=== PATIENT | female | born 1995 | race Two or more races ===

== ENCOUNTER 2025-03-15 07:32 | Emergency (ER) | payer MEDICAID, OTHER ==
[~2025-03-15] VITALS: Ht 160 cm; Wt 73.1 kg
[2025-03-15 07:34] VITALS: BP 121/80; PULSE 60; RESP 16; TEMP 97.9; O2SAT 99
[2025-03-15] MEDS ORDERED: KETO0.5S31 RIGHTEYE (08:43)
[2025-03-15] MEDS ORDERED: ERY05OO OP (08:43)
--- NOTE | 2025-03-15 08:49 | ED.PDOC ---
Eye-HPI HPI Comments 29-year-old female presents to the ER with a the chief complaint of eye pain. Patient reports my son dug his fingers into my right eye last night insert having right eye pain. The patient states that she tried sleeping the pain off but was unable to, due from having pain when opening the eye. Denies any other symptoms at this time. #right eye right pain Started-last night Tried-sleeping it off ankle Denies vision changes Denies eye discharge Denies hearing changes, nausea, vomiting Denies eye pain with movement, eye pain in general, difficulty keeping eye open, feeling of something stuck in the eye, sensitivity to light Viral conditions may be associated with Watery or serous discharge Started in 1 eye then second eye 1 to 2 days later Bacterial conditions look for Purulent discharge Crusting of eyelids in the morning No history of recent or seasonal conjunctivitis Acute otitis media Chief Complaint: Eye Problem Time Seen by MD: 08:45 Reviewed Notes: Nurses Notes, Medications, Allergies Allergies: Coded Allergies: NO KNOWN ALLERGIES (Unverified , 03/15/25) Home Meds Active Scripts Erythromycin (Erythromycin) 5 Mg/Gm Oin, 1 APPLIC OP BID for 5 Days, #3.5 OIN 0 Refills Prov:KAYLEY ROBLES [employer]PER[employer] DEVELOPER 03/15/25 Ketorolac Tromethamine (Ophth) (Ketorolac Tromethamine) 0.5 % Yesenia, 1 DROP RIGHTEYE QID for 2 Days, #5 ML 0 Refills Prov:KAYLEY ROBLES HYPERION DEVELOPER 03/15/25 Information Source: Patient Mode of Arrival: Ambulatory Eye Location: Right Lids: Normal Conjunctiva: Normal Cornea: Right eye Pupils: Normal EOM: Normal Fundus: Normal Slit lamp exam: Normal Anterior chamber: Normal Mouth: Normal ENT Ear Exam: Normal, Normal, Normal Nose: Normal Sinuses: Normal Oropharynx: Normal Onset: Spontaneous Throat Exposed to: None History of: None Associated signs and symptoms: None Past Medical History PAST MEDICAL HISTORY: Denies Surgical History: Denies all surgeries REFERENCE SERVICES HEAD History: No Pertinent REFERENCE SERVICES HEAD History Family History Family History: Reviewed,noncontributory to illness, Unknown Social History Smoker: Non-Smoker Alcohol: Denies ETOH Use Drugs: Denies Drug Use Lives In: Home Constitutional: denies: chills, diaphoresis, fatigue, fever, malaise, sweats, weakness, others EENTM: reports: eye pain, eye redness; denies: blurred vision, double vision, ear bleeding, ear discharge, ear drainage, ear pain, ear ringing, hearing loss, mouth pain, mouth swelling, nasal discharge, nose bleeding, nose congestion, nose pain, photophobia, tearing, throat pain, throat swelling, voice changes, others Respiratory: denies: cough, hemoptysis, orthopnea, SOB at rest, shortness of breath, SOB with excertion, stridor, wheezing, others Cardiovascular: denies: chest pain, dizzy spells, diaphoresis, Dyspnea on exertion, edema, irregular heart beat, left arm pain, lightheadedness, palpitations, PND, syncope, others Gastrointestinal: denies: abdomen distended, abdominal pain, blood streaked bowels, constipated, diarrhea, dysphagia, difficulty swallowing, hematemesis, melena, nausea, poor appetite, poor fluid intake, rectal bleeding, rectal pain, vomiting, others Genitourinary: denies: abnormal vagina bleeding, burning, dyspareunia, dysuria, flank pain, frequency, hematuria, incontinence, pain, , vagina discharge, urgency, others Neurological: denies: dizziness, fainting, headache, left sided numbness, left sided weakness, numbness, paresthesia, pre-existing deficit, right sided numbness, right sided weakness, seizure, speech problems, tingling, tremors, weakness, others Musculoskeletal: denies: back pain, gout, joint pain, joint swelling, muscle pain, muscle stiffness, neck pain, others Integumetry: denies: bruises, change in color, change in hair/nails, dryness, laceration, lesions, lumps, rash, wounds, others Allergic/Immunocompromised: denies: Difficulty Healing, Frequent Infections, Hives, Itching, others Hematologic/Lymphatic: denies: anemia, blood clots, easy bleeding, easy bruising, swollen glands, others Endocrine: denies: excessive hunger, excessive sweating, excessive thirst, excessive urination, flushing, intolerance to cold, intolerance to heat, unexp lained weight gain, unexplained weight loss, others Psychiatric: denies: anxiety, bipolar disorder, depression, hopeless, panic disorder, schizophrenia, sleepless, suicidal, others All Other Systems: Reviewed and Negative Physical Exam Exam Comments Mild conjunctival injection, no hyphema, visual razo intact, EOM and PERRLA General Appearance: No Apparent Distress, Normal HEENT: Normal ENT Inspection, Pharynx Normal, TMs Normal Neck: Full Range of Motion, Non-Tender, Normal, Normal Inspection Respiratory: Chest Non-Tender, Lungs Clear, No Accessory Muscle Use, No Respiratory Distress, Normal Breath Sounds Cardiovascular: No Edema, No JVD, No Murmur, No Gallop, Normal Peripheral Pulses, Regular Rate/Rhythm Breast Exam: Deferred Gastrointestinal: No Organomegaly, Non Tender, No Pulsatile Mass, Normal Bowel Sounds, Soft Genitalia: Deferred Pelvic: Deferred Rectal: Deferred Extremities: No calf tenderness, Normal capillary refill, Normal inspection, Normal range of motion, Non-tender, No pedal edema Musculoskeletal : Apperance: Normal Neurologic: Alert, karate teacher II-XII nml as Tested, No Motor Deficits, Normal Affect, Normal Mood, No Sensory Deficits Cerebellar Function: Normal Reflexes: Normal Skin: Dry, Normal Color, Warm Lymphatic: No Adenopathy Was a procedure done? Was a procedure done?: No EENT DIFF Eye: Other X-Ray, Labs, Meds, VS Vital Signs Date Time Temp Pulse Resp B/P (MAP) Pulse Ox O2 Delivery O2 Flow Rate FiO2 03/15/25 07:34 97.9 60 16 121/80 99 97.9 X-Ray, Labs, Meds, VS Comment 29-year-old female presents to the ER with a the chief complaint of eye pain. Patient arrives alert and oriented, ABC's intact, afebrile, vital signs stable, saturating well in room air History and findings consistent with corneal abrasion Applied 1 drop of tetracaine and patient reported instant relief with topical anesthesia Applied fluorescein strip Using Hansen lamp corneal defect detected indicating corneal abrasion Patient discharged and advised to follow-up in 48 hours with PCP or optometry Discussed with patient's approximate healing time for corneal abrasions is somewhere between 48 to 72 hours Vicki sign negative On reevaluation, patient had symptomatic improvement. Patient is stable for discharge at this time. External notes reviewed. Test results and diagnostic imaging interpreted. All diagnostic findings, discharge care, education and instructions provided Follow-up with PCP in 2 to 3 days Patient verbalized understanding and agreed to treatment plan Vital signs stable, afebrile, no acute distress noted Patient ambulatory with strong steady gait Advised to return precautions for any new or worsening symptoms, return to ER immediately for re-evaluation Patient is aware that the purpose of this visit was for an acute medical emergency requiring emergent stabilization. Chronic conditions, including malignancies have not been ruled out. Patient is instructed to follow up with PCP as directed and discharge instructions for continued care and workup. If unable to arrange follow-up, patient is to return to the emergency department for reassessment. Patient (parent or legal guardian if applicable) was given verbal and written discharge instructions and acknowledges understanding. Additional MDM Review of External, Non-ED records: External records reviewed. Discussion with independent historian (EMS, family) history obtained from the patient/parents (if applicable) at bedside Chronic conditions affecting care: None Social determinants of health affecting care: None Consideration of admission (observation or admission): I considered escalation of care to admission for this patient, however given the reassuring workup, the patient is safe for outpatient management. Discussion with the Radiology: No Tests considered but not performed: Prescription medication considered but not given: 12 lead EKG interpretation: Time of 1ST Reevaluation: 09:15 Reevaluation 1ST: Unchanged Patient Education/Counseling: Diagnosis, Treatment, Prognosis Family Education/Counseling: No Family Present SEPSIS Sepsis Screen Date sepsis recognized/suspect: Mar 15, 2025 Time Sepsis recognized/suspect: 07 Recent Procedure: No On Antibiotic Therapy: No Respiratory Rate >20: No Heart Rate >90: No Temp<36 C (96.8 F) or >38.3 C: No SBP <90 or MAP <65 mmHG: No New Acute Mental Status Change: No Is the patient on CPAP, BIPAP,: No Vital Signs Date Time Temp Pulse Resp B/P (MAP) Pulse Ox O2 Delivery O2 Flow Rate FiO2 03/15/25 07:34 97.9 60 16 121/80 99 97.9 Departure 1 Departure Time of Disposition: 09:16 Impression: Primary Impression: Corneal abrasion, right Qualified Codes: S05.01XA - Injury of conjunctiva and corneal abrasion without foreign body, right eye, initial encounter Disposition: HOME / SELF CARE / HOMELESS Condition: Stable e-Prescriptions Erythromycin (Erythromycin) 5 Mg/Gm Oin 1 APPLIC OP BID for 5 Days, #3.5 OIN 0 Refills Prov: KAYLEY ROBLES HYPERION DEVELOPER 03/15/25 Ketorolac Tromethamine (Ophth) (Ketorolac Tromethamine) 0.5 % Yesenia 1 DROP RIGHTEYE QID for 2 Days, #5 ML 0 Refills Prov: KAYLEY ROBLES NP 03/15/25 Discharged With: Self Critical Care Note Critical Care Time?: No Stability Stability form required: No Heart Score Heart Score: Heart Score Response (Comments) Value History N/A 0 EKG N/A 0 Age N/A 0 Risk Factors N/A 0 Troponin N/A 0 Total 0 I personally scribed for KAYLEY ROBLES NP ([email or web address]) on 03/15/25 at 08:49. Electronically submitted by Vance Gottlieb ([employer]). I personally scribed for KAYLEY ROBLES NP ([email or web address]) on 03/15/25 at 08:50. Electronically submitted by Vance Gottlieb ([employer]). KAYLEY ROBLES NP Mar 15, 2025 08:49
== END 2025-03-15 09:02 | disposition home or self-care (01) ==
LOC: ER 07:32
DX: S05.01XA Injury of conjunctiva and corneal abrasion without foreign body, right eye, initial encounter (principal); X58.XXXA Exposure to other specified factors, initial encounter; Y93.89 Activity, other specified; Y92.89 Other specified places as the place of occurrence of the external cause; Y99.8 Other external cause status